=== PATIENT | female | born 1995 | race Two or more races ===

== ENCOUNTER 2024-06-12 14:49 | Emergency (ER) | payer OTHER ==
[~2024-06-12] VITALS: Ht 162.6 cm; Wt 152.0 kg
[2024-06-12 15:12] LABS: Urine Bacteria None Seen /hpf (None Seen)
[2024-06-12 15:33] LABS: Urine Blood 2+ /uL (Negative); Urine Clarity Clear (Clear); Urine Color Yellow (Yellow); Urine Mucus FEW (None Seen); Urine Protein, UAD TRACE (Negative); Urine Specific Gravity 1.028 (1.001-1.035); Urine Urobilinogen Normal (Negative); Urine WBC 6 /hpf (0 - 5); Urine pH 5.5 (5.0-9.0)
[2024-06-12 17:17] LABS: Basophils # (auto) 0.1 10 ^3/uL (0-0.2); Basophils % (auto) 0.5 % (0.0-2.0); Eosinophils # (auto) 0.2 10 ^3/uL (0-0.8); Eosinophils % (auto) 1.7 % (0.0-7.0); Hematocrit 43.5 % (36.0-46.0); Hemoglobin 14.9 g/dL (12.2-16.2); Lymphocytes % (auto) 37.3 % (10.0-50.0); Mean Corpuscular Hemoglobin 29.7 pg (28.0-32.0); Mean Corpuscular Hgb Conc. 34.3 g/dL (32.0-36.0); Mean Corpuscular Volume 86.8 fL (80.0-100.0); Monocytes # (auto) 0.7 10 ^3/uL (0-1.3); Neutrophils # (auto) 5.9 10 ^3/uL (1.6-8.6); Neutrophils % (auto) 54.5 % (37.0-80.0); Nucleated Red Blood Cells % 0.1 %; Platelet Count (auto) 298 10^3/uL (140-450); Red Blood Cells 5.01 10^6/uL (4.0-5.20); Red Cell Distribution Width 14.3 % (11.8-14.3); White Blood Cell 10.9 10^3/uL (4.4-10.8)
[2024-06-12 17:27] LABS: Alanine Aminotransferase 42 U/L (7-40); Albumin 4.8 g/dL (3.2-4.8); Alkaline Phosphatase 89 U/L (46-116); Anion Gap 8 (5-15); Aspartate Aminotransferase 25 U/L (13-40); BUN/Creatinine Ratio 13.8 (10.0-20.0); Bilirubin, Total 0.5 mg/dL (0.2-1.0); Blood Urea Nitrogen 9 mg/dL (9-23); Calcium 9.9 mg/dL (8.7-10.4); Carbon Dioxide 27 mmol/L (20-31); Chloride 104 mmol/L (98-107); Glucose 87 mg/dL (74-106); Magnesium 2.3 mg/dL (1.6-2.6); Potassium 3.7 mmol/L (3.5-5.1); Sodium 139 mmol/L (136-145); Total Protein 7.8 g/dL (5.7-8.2)
[2024-06-12] MEDS: SODIUM CHLORIDE 0.9% 1,000 ML IV ONE (20:31)
[2024-06-12] MEDS: ASPirin 325 MG TAB PO ONE (20:33)
[2024-06-12 20:35] VITALS: BP 151/90; PULSE 81; RESP 16; O2SAT 99
== END 2024-06-12 20:39 | disposition home or self-care (01) ==
LOC: ER 14:49
DX: R07.89 Other chest pain (principal); Z79.899 Other long term (current) drug therapy
CPT/HCPCS: 36415; 71046; 80053; 81001; 83735; 84484; 85025; 93005

== ENCOUNTER 2025-06-05 15:01 | Inpatient (IN) | payer MEDICAID, OTHER ==
[~2025-06-05] VITALS: Ht 162.6 cm; Wt 162.2 kg
[2025-06-05] MEDS: ADENOSINE 6 MG/2 ML INJ IV ONE ×5 (15:20→15:57)
--- NOTE | 2025-06-05 15:30 | ECG ---
[facility] Test Date: 2025-06-05 Test Time: 15:10:12 Pat Name: BÁRBARA MARREROAllipartment: ED Room: 0251T Gender: F Licensing Analyst: jacquie : 1995 Requested By: DALILA MCFARLANE Order Number: [id number] Reading MD: Heriberto Rowe Measurements Intervals [place] Rate: 239 P: 54 [place]: 142 QRS: -17 QRSD: 82 T: 49 QT: 229 QTc: 457 Interpretive Statements Supraventricular tachycardia Borderline left axis deviation Probable anteroseptal infarct, old ST depression, probably rate related Electronically Signed On 06-13-2025 21:35:48 PDT by Heriberto Rowe Please click the below link to view image of tracing.
[2025-06-05 15:40] VITALS: PULSE 104; RESP 12; O2SAT 100
[2025-06-05] MEDS: MORPHINE SULFATE INJ 2 MG/ml SYRG IM ONE (16:00)
--- NOTE | 2025-06-05 16:12 | ED.PDOC ---
HPI Comments Torri Taylor is a 29-year- old female with no relevant past medical history. The patient came ambulatory to the ED with chief complaint of approximate 3 hrs of the start of sub-sternal chest pain, 9/10, pressure-like; associated with palpitation, and heart racing sensation, lightheaded, dizziness, nausea and, feeling clammy. The patient reported the symptoms started while she was at sitting work at her break time. 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 She went home, and rested, but the symptoms did not improved, the chest pain increased and she vomited once, this prompted her visit to the ED. On the ED her heart rate was 239 bpm, EKG reveled: supraventricular tachycardia, borderline left axis, ST depression probably rate related. The patient was medically converted with adenosine to sinus rhythm. Troponins, CBC, BMP and serial EKG were ordered. Chief Complaint: Chest Pain Time Seen by MD: 15:02 Reviewed Notes: Nurses Notes, Medications, Allergies Allergies: Coded Allergies: NO KNOWN ALLERGIES (Unverified , 06/12/24) Information Source: Patient Mode of Arrival: Ambulatory Severity: Severe Timing: Hours Duration: Since onset Location: Chest (L) Radiation: No Radiation Quality: Pressure Onset: At Rest Cardiac Risk Factors: None PE Risk Factors: None History of: None Modifying Factors: Nothing Associated Signs and Symptoms: Palpitations, Diaphoresis, Other (Dizziness) Past Medical History PAST MEDICAL HISTORY: Denies Surgical History: Denies all surgeries KITCHEN OPERATOR History: No Pertinent KITCHEN OPERATOR History (Patient uses subdermal contraceptive implant placed in 2021. Since then she does not see menstrual periods. ) Family History Family History: Reviewed,noncontributory to illness Social History Smoker: Non-Smoker Alcohol: Denies ETOH Use Drugs: Denies Drug Use Constitutional: reports: diaphoresis EENTM: denies: blurred vision, double vision, ear bleeding, ear discharge, ear drainage, ear pain, ear ringing, eye pain, eye redness, hearing loss, mouth pain, mouth swelling, nasal discharge, nose bleeding, nose congestion, nose pain, photophobia, tearing, throat pain, throat swelling, voice changes, others Respiratory: denies: cough, hemoptysis, orthopnea, SOB at rest, shortness of breath, SOB with excertion, stridor, wheezing, others Cardiovascular: reports: chest pain, diaphoresis, irregular heart beat, lightheadedness, palpitations; denies: dizzy spells, Dyspnea on exertion, edema, left arm pain, PND, syncope, others Gastrointestinal: denies: abdomen distended, abdominal pain, blood streaked bowels, constipated, diarrhea, dysphagia, difficulty swallowing, hematemesis, melena, nausea, poor appetite, poor fluid intake, rectal bleeding, rectal pain, vomiting, others Genitourinary: denies: abnormal vagina bleeding, burning, dyspareunia, dysuria, flank pain, frequency, hematuria, incontinence, pain, , vagina discharge, urgency, others Neurological: denies: dizziness, fainting, headache, left sided numbness, left sided weakness, numbness, paresthesia, pre-existing deficit, right sided numbness, right sided weakness, seizure, speech problems, tingling, tremors, weakness, others Musculoskeletal: denies: back pain, gout, joint pain, joint swelling, muscle pain, muscle stiffness, neck pain, others Integumetry: denies: bruises, change in color, change in hair/nails, dryness, laceration, lesions, lumps, rash, wounds, others Allergic/Immunocompromised: denies: Difficulty Healing, Frequent Infections, Hives, Itching, others Hematologic/Lymphatic: denies: anemia, blood clots, easy bleeding, easy bruising, swollen glands, others Endocrine: denies: excessive hunger, excessive sweating, excessive thirst, excessive urination, flushing, intolerance to cold, intolerance to heat, unexplained weight gain, unexplained weight loss, others Psychiatric: denies: anxiety, bipolar disorder, depression, hopeless, panic disorder, schizophrenia, sleepless, suicidal, others Physical Exam General Appearance: Severe Distress HEENT: Normal ENT Inspection, Pharynx Normal, TMs Normal Neck: Full Range of Motion, Non-Tender, Normal, Normal Inspection Respiratory: Chest Non-Tender, Lungs Clear, No Accessory Muscle Use, No Respiratory Distress, Normal Breath Sounds Cardiovascular: Irregular, No Edema, Normal Peripheral Pulses, Tachycardia Breast Exam: Deferred Gastrointestinal: No Organomegaly, Non Tender, No Pulsatile Mass, Normal Bowel Sounds, Soft Genitalia: Deferred Pelvic: Deferred Rectal: Deferred Extremities: No calf tenderness, Normal capillary refill, Normal inspection, Normal range of motion, Non-tender, No pedal edema Neurologic: Alert, energy engineer II-XII nml as Tested, No Motor Deficits, Normal Affect, Normal Mood, No Sensory Deficits Cerebellar Function: Normal Reflexes: Normal Skin: Dry, Normal Color, Warm Lymphatic: No Adenopathy EKG EKG : Pulse Rate (adult): 239 Cardiac Rhythm: PSVT Block: None Hypertrophy: None ST: Old Was a procedure done? Was a procedure done?: Yes Sedation Sedation?: No Cardioversion Vagal maneuver: Were attempted Attempts: x3 Resulted Rhythm: NSR Direct Supervision: Yes Informed consent obtained: Yes Risks/benefits/alt described: Yes CP Differential Dx Differential Diagnosis: PSVT, Ventricular Dysrhythmia Differential Diagnosis: N/A Differential Diagnosis: Angina, Myocardial Infarction X-Ray, Labs, Meds, VS Vital Signs Date Time Temp Pulse Resp B/P (MAP) Pulse Ox O2 Delivery O2 Flow Rate FiO2 06/05/25 16:41 239 06/05/25 15:53 100 06/05/25 15:51 100 Nasal Cannula* 2 28 06/05/25 15:40 104 12 116/79 (91) 100 06/05/25 15:40 104 12 100 Nasal Cannula* 2 28 06/05/25 15:10 239 06/05/25 15:01 97.4 85 18 159/65 100 97.4 Lab Test 06/05/25 15:42 Range/Units White Blood Count 16.1 H 4.4-10.8 10^3/uL Red Blood Count 4.93 4.0-5.20 10^6/uL Hemoglobin 13.6 12.2-16.2 g/dL Hematocrit 41.2 36.0-46.0 % Mean Corpuscular Volume 83.6 80.0-100.0 fL Mean Corpuscular Hemoglobin 27.5 L 28.0-32.0 pg Mean Corpuscular Hemoglobin Concent 32.9 32.0-36.0 g/dL Red Cell Distribution Width 14.4 H 11.8-14.3 % Platelet Count 340 140-450 10^3/uL Mean Platelet Volume 8.4 6.9-10.8 fL Neutrophils (%) (Auto) 70.9 37.0-80.0 % Lymphocytes (%) (Auto) 24.6 10.0-50.0 % Monocytes (%) (Auto) 3.8 0.0-12.0 % Eosinophils (%) (Auto) 0.3 0.0-7.0 % Basophils (%) (Auto) 0.4 0.0-2.0 % Neutrophils # (Auto) 11.4 H 1.6-8.6 10 ^3/uL Lymphocytes # (Auto) 3.9 0.4-5.4 10 ^3/uL Monocytes # (Auto) 0.6 0-1.3 10 ^3/uL Eosinophils # (Auto) 0 0-0.8 10 ^3/uL Basophils # (Auto) 0.1 0-0.2 10 ^3/uL Nucleated Red Blood Cells 0.0 % Sodium Level 139 136-145 mmol/L Potassium Level 4.1 3.5-5.1 mmol/L Chloride Level 105 98-107 mmol/L Carbon Dioxide Level 22 20-31 mmol/L Anion Gap 12 5-15 Blood Urea Nitrogen 12 9-23 mg/dL Creatinine 1.05 H 0.550-1.02 mg/dL Glomerular Filtration Rate Calc 73 >90 mL/min BUN/Creatinine Ratio 11.4 10.0-20.0 Serum Glucose 175 H 74-106 mg/dL Calcium Level 9.4 8.7-10.4 mg/dL Troponin I High Sensitivity 494 *H </=34 ng/L Current Medications Medications (Trade) Dose Ordered Sig/Karel Route Start Time Stop Time Status Last Admin Adenosine (Adenosine) 6 mg ONCE ONCE IV 06/05/25 15:45 06/05/25 15:46 DC 06/05/25 15:20 Adenosine (Adenosine) 12 mg ONCE ONCE IV 06/05/25 15:45 06/05/25 15:46 DC 06/05/25 15:26 Adenosine (Adenosine) 18 mg ONCE ONCE IV 06/05/25 15:45 06/05/25 15:46 DC 06/05/25 15:30 X-Ray, Labs, Meds, VS Comment The patient is re-evaluated, she reports her chest pain has improved 3/10, she feels less dizzy. New EKG showed: Sinus tachycardia. HR: 106bpm Troponins 496, CBC: WBC 16.1 X-Ray: No acute disease Time of 1ST Reevaluation: 16:40 Reevaluation 1ST: Improved Patient Education/Counseling: Diagnosis, Treatment, Prognosis, Need For Follow Up Family Education/Counseling: Diagnosis, Treatment, Prognosis, Need For Follow Up SEPSIS Sepsis Screen Date sepsis recognized/suspect: Jun 05, 2025 Time Sepsis recognized/suspect: 1540 Recent Procedure: No On Antibiotic Therapy: No Respiratory Rate >20: No Heart Rate >90: Yes Temp<36 C (96.8 F) or >38.3 C: No SBP <90 or MAP <65 mmHG: No New Acute Mental Status Change: No Is the patient on CPAP, BIPAP,: No Physician Orders Troponin-I Hs (06/05/25 16:04) Troponin-I Hs (06/05/25 18:04) Electrocardigram (06/05/25 16:04) Electrocardigram (06/05/25 18:04) Troponin-I Hs (06/05/25 15:39) Troponin-I Hs (06/05/25 16:39) Troponin-I Hs (06/05/25 18:39) Electrocardigram (06/05/25 15:39) Chest Xray 1 View (06/05/25 15:46) * Cardiology Consult (06/05/25 16:59) Vital Signs Date Time Temp Pulse Resp B/P (MAP) Pulse Ox O2 Delivery O2 Flow Rate FiO2 06/05/25 16:41 239 06/05/25 15:53 100 06/05/25 15:51 100 Nasal Cannula* 2 28 06/05/25 15:40 104 12 116/79 (91) 100 06/05/25 15:40 104 12 100 Nasal Cannula* 2 28 06/05/25 15:10 239 06/05/25 15:01 97.4 85 18 159/65 100 97.4 Laboratory Tests Test 06/05/25 15:42 White Blood Count 16.1 10^3/uL (4.4-10.8) H Medications Medications Dose Ordered Sig/Karel Route Start Time Stop Time Status Last Admin Dose Admin Adenosine 6 mg ONCE ONCE IV 06/05/25 15:45 06/05/25 15:46 DC 06/05/25 15:20 Adenosine 12 mg ONCE ONCE IV 06/05/25 15:45 06/05/25 15:46 DC 06/05/25 15:26 Adenosine 18 mg ONCE ONCE IV 06/05/25 15:45 06/05/25 15:46 DC 06/05/25 15:30 Departure 1 Departure Time of Disposition: 17:21 Impression: Primary Impression: SVT (supraventricular tachycardia) Additional Impression: Acute coronary syndrome Disposition: 09 ADMITTED INPATIENT Admit to: Tele Condition: Stable Comments Goals of care discussed with the patient > 45 min. Discussed plan of care with Dr. Luong Code status: Full code PCP: does not recall name. Plan discussed with: Patient and her mother, the patient agrees with the a dmission plan. Critical Care Note Critical Care Time?: Yes (45 min-critical care time only) Stability Stability form required: No Heart Score Heart Score: Heart Score Response (Comments) Value History Highly Suspicious [address]-Deviation 2 Age <45 0 Risk Factors 1 or 2 risk factors 1 Troponin >3 x's Normal limit 2 Total 7 DALILA MCFARLANE RESIDENT Jun 05, 2025 16:12
[2025-06-05 16:27] LABS: Hematocrit 41.2 % (36.0-46.0); Hemoglobin 13.6 g/dL (12.2-16.2); Mean Corpuscular Hemoglobin 27.5 pg (28.0-32.0); Mean Corpuscular Volume 83.6 fL (80.0-100.0); Nucleated Red Blood Cells % 0.0 %
--- NOTE | 2025-06-05 16:27 | DVH ---
CHEST RADIOGRAPH Indication: Chest pain Technique: Single frontal view of the chest was obtained COMPARISON: XY CHEST TWO VIEWS ROUTINE on DOS: 06/12/24 FINDINGS: Lines and Tubes: None Lungs: Clear Pleura: No effusion. No pneumothorax. Cardiomediastinal contours: Unremarkable Bones: Unremarkable IMPRESSION: No acute disease.
[2025-06-05 16:37] LABS: Chloride 105 mmol/L (98-107); Potassium 4.1 mmol/L (3.5-5.1); Sodium 139 mmol/L (136-145)
[2025-06-05 16:38] LABS: Anion Gap 12 (5-15); Calcium 9.4 mg/dL (8.7-10.4); Carbon Dioxide 22 mmol/L (20-31)
[2025-06-05 16:43] LABS: BUN/Creatinine Ratio 11.4 (10.0-20.0); Blood Urea Nitrogen 12 mg/dL (9-23); Glucose 175 mg/dL (74-106)
[2025-06-05 18:52] LABS: Urine Protein, UAD Negative (Negative)
[2025-06-05] MEDS ORDERED: TEMAZEPAM 15 MG CAP PO PRN (20:00)
[2025-06-05] MEDS ORDERED: ONDANSETRON HCL 4 MG/2 ML VIAL IV PRN (20:00)
[2025-06-05] MEDS ORDERED: HEPARIN DRIP/D5W 100UNITS/ML 250 ML IV SCH (20:00)
[2025-06-05] MEDS ORDERED: NITROGLYCERIN 0.4 MG SL TAB SL PRN (20:00)
[2025-06-05] MEDS ORDERED: MORPHINE SULFATE INJ 2 MG/ml SYRG IV PRN (20:00)
[2025-06-05] MEDS ORDERED: ACETAMINOPHEN 325 MG TAB PO PRN (20:00)
[2025-06-05 21:07] LABS: Hematocrit 40.3 % (36.0-46.0); Hemoglobin 13.2 g/dL (12.2-16.2); Mean Corpuscular Hemoglobin 27.4 pg (28.0-32.0); Mean Corpuscular Volume 83.3 fL (80.0-100.0); Nucleated Red Blood Cells % 0.0 %
[2025-06-05 21:34] LABS: INR 1.02 (0.9-1.15); Partial Thromboplastin Time 28.5 SEC (24.5-34.5); Prothrombin Time 10.8 sec (9.3-11.8)
[2025-06-05 21:37] VITALS: PULSE 92
[2025-06-05 21:40] VITALS: BP 137/80; PULSE 89; RESP 20; TEMP 98.4; O2SAT 99
--- NOTE | 2025-06-05 23:09 | ECG ---
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
[2025-06-05 23:17] VITALS: PULSE 89; RESP 20; O2SAT 99
[2025-06-05 23:19] VITALS: BP 137/80; PULSE 89; RESP 20; TEMP 98.4; O2SAT 99
[2025-06-05] MEDS: ATORVASTATIN 20 MG TAB PO SCH (23:37)
[2025-06-05] MEDS: HEPARIN SODIUM (PORCINE) 5000 UNITS/ML 1ML VIAL IV ONE (23:40)
[2025-06-05] MEDS: HEPARIN DRIP/D5W 100UNITS/ML 250 ML IV SCH (23:55)
[2025-06-06] VITALS (8 sets, daily range): BP systolic 102–125; BP diastolic 51–74; PULSE 80–95; RESP 18–20; TEMP 97.9–98.2; O2SAT 95–99
--- NOTE | 2025-06-06 04:37 | DVHHP2 ---
History of Present Illness Reason for Visit: Palpitations History of Present Illness 29-year-old female presents for evaluation of palpitations. Patient reports developing palpitations around noon yesterday then subsequently right-sided chest pressure with nausea and diaphoresis which lasted approximately 4 hours until she arrived to the emergency department. Currently she denies any symptoms. Patient was noted to be in SVT EN route and given adenosine x2 which converted her to sinus rhythm. Past Medical History Denies Past Surgical History Denies Family History Noncontributory Smoke: No ALCOHOL: none Drugs: None Lives: with Family Review of Systems Review of Systems Review of systems are currently negative otherwise addressed in HPI. Allergies: Coded Allergies: NO KNOWN ALLERGIES (Unverified , 06/12/24) Medications Current Medications Medications Dose Ordered Sig/Karel Route Start Time Stop Time Status Last Admin Dose Admin Temazepam 15 mg QHSP PRN PO 06/05/25 20:00 Ondansetron HCl 4 mg Q4HP PRN IV 06/05/25 20:00 Acetaminophen 650 mg Q6HP PRN PO 06/05/25 20:00 Nitroglycerin 0.4 mg Q5MINP PRN SL 06/05/25 20:00 Morphine Sulfate 2 mg Q30M PRN IV 06/05/25 20:00 Aspirin 162 mg DAILY PO 06/06/25 10:00 Atorvastatin Calcium 10 mg HS PO 06/05/25 22:00 06/05/25 23:37 10 MG Heparin Sodium/ Dextrose 250 ml @ 10 mls/hr Q24H IV 06/05/25 23:00 06/05/25 23:55 10 MLS/HR Exam Vital Signs Vital Signs Date Time Temp Pulse Resp B/P (MAP) Pulse Ox O2 Delivery O2 Flow Rate FiO2 06/06/25 01:00 98.0 82 20 114/72 (86) 99 98.0 06/05/25 23:17 Nasal Cannula* 2 28 Exam Gen: 29-year-old female in mild distress, morbidly obese Skin: Warm, dry, normal color and texture, no rash. HEENT: Normocephalic atraumatic, mucous membranes moist and pink. Neck: Cervical and supraclavicular nodes normal without enlargement, trachea is midline, thyroid gland is normal without masses. Pulmonary: Clear to auscultation and percussion bilaterally. Cardiac: Regular rate and rhythm. No murmur Abdomen: Soft, nontender, nondistended, bowel sounds present all 4 quadrants, no guarding, no rigidity, no organomegaly. Extremities: No cyanosis, clubbing, no edema Neuro: Cranial nerves II through XII grossly intact, normal affect and speech, no focal motor deficits. Labs/Xrays ORDERING PHYSICIAN: DALILA MCFARLANE RESIDENT PROCEDURE(s): CXR1 - CHEST XRAY 1 VIEW REASON: Chest pain ORDER NUMBER(s): [id number], ACCESSION NUMBER(s): [id number] CHEST RADIOGRAPH Indication: Chest pain Technique: Single frontal view of the chest was obtained COMPARISON: XY CHEST TWO VIEWS ROUTINE on DOS: 06/12/24 FINDINGS: Lines and Tubes: None Lungs: Clear Pleura: No effusion. No pneumothorax. Cardiomediastinal contours: Unremarkable Bones: Unremarkable IMPRESSION: No acute disease. Labs Test 06/05/25 20:32 06/05/25 18:30 06/05/25 15:42 Range/Units White Blood Count 12.7 H 4.4-10.8 10^3/uL Red Blood Count 4.83 4.0-5.20 10^6/uL Hemoglobin 13.2 12.2-16.2 g/dL Hematocrit 40.3 36.0-46.0 % Mean Corpuscular Volume 83.3 80.0-100.0 fL Mean Corpuscular Hemoglobin 27.4 L 28.0-32.0 pg Mean Corpuscular Hemoglobin Concent 32.9 32.0-36.0 g/dL Red Cell Distribution Width 14.6 H 11.8-14.3 % Platelet Count 339 140-450 10^3/uL Mean Platelet Volume 8.5 6.9-10.8 fL Neutrophils (%) (Auto) 70.5 37.0-80.0 % Lymphocytes (%) (Auto) 25.5 10.0-50.0 % Monocytes (%) (Auto) 3.5 0.0-12.0 % Eosinophils (%) (Auto) 0.1 0.0-7.0 % Basophils (%) (Auto) 0.4 0.0-2.0 % Neutrophils # (Auto) 9.0 H 1.6-8.6 10 ^3/uL Lymphocytes # (Auto) 3.2 0.4-5.4 10 ^3/uL Monocytes # (Auto) 0.4 0-1.3 10 ^3/uL Eosinophils # (Auto) 0 0-0.8 10 ^3/uL Basophils # (Auto) 0 0-0.2 10 ^3/uL Nucleated Red Blood Cells 0.0 % Prothrombin Time 10.8 9.3-11.8 sec Prothrombin Time INR 1.02 0.9-1.15 Activated Partial Thromboplast Time 28.5 24.5-34.5 SEC Troponin I High Sensitivity 5241 *H </=34 ng/L Urine Color Light-yellow Yellow Urine Clarity Clear Clear Urine pH 5.5 5.0-9.0 Urine Specific [place] 1.012 1.001-1.035 Urine Protein Negative Negative Urine Ketones Trace Negative Urine Blood Negative Negative /uL Urine Nitrite Negative Negative Urine Bilirubin Negative Negative Urine Urobilinogen Normal Negative mg/dL Urine Leukocyte Esterase Negative Negative /uL Urine RBC <1 0 - 4 /hpf Urine Microscopic WBC < 1 0-5 /HPF Urine Squamous Epithelial Cells Few <5 /hpf Urine Bacteria None seen None Seen /hpf Urine Glucose Normal Normal mg/dL Sodium Level 139 136-145 mmol/L Potassium Level 4.1 3.5-5.1 mmol/L Chloride Level 105 98-107 mmol/L Carbon Dioxide Level 22 20-31 mmol/L Anion Gap 12 5-15 Blood Urea Nitrogen 12 9-23 mg/dL Creatinine 1.05 H 0.550-1.02 mg/dL Glomerular Filtration Rate Calc 73 >90 mL/min BUN/Creatinine Ratio 11.4 10.0-20.0 Serum Glucose 175 H 74-106 mg/dL Calcium Level 9.4 8.7-10.4 mg/dL SEPSIS Sepsis Screen Date sepsis recognized/suspect: Jun 05, 2025 Time Sepsis recognized/suspect: 1540 Recent Procedure: No On Antibiotic Therapy: No Respiratory Rate >20: No Heart Rate >90: Yes Temp<36 C (96.8 F) or >38.3 C: No SBP <90 or MAP <65 mmHG: No New Acute Mental Status Change: No Is the patient on CPAP, BIPAP,: No Physician Orders Platelet Monitoring (06/05/25 22:53) Discontinue All Im Injections (06/05/25 22:53) Heparin Drip/D5w 100units/Ml (06/05/25 23:00) Npo (Nothing By Mouth) Diet (06/06/25 Breakfast) Heparin Per Standardized Proce (06/05/25 23:01) Electrocardigram (06/05/25 23:11) PTPTT (06/06/25 06:00) * Cardiology Consult (06/06/25 03:25) Vital Signs Date Time Temp Pulse Resp B/P (MAP) Pulse Ox O2 Delivery O2 Flow Rate FiO2 06/06/25 01:00 98.0 82 20 114/72 (86) 99 98.0 06/05/25 23:19 98.4 89 20 137/80 (99) 99 98.4 06/05/25 23:17 89 20 99 Nasal Cannula* 2 28 06/05/25 21:40 98.4 89 20 137/80 (99) 99 98.4 06/05/25 21:37 92 06/05/25 21:00 91 12 125/71 (89) 97 Laboratory Tests Test 06/05/25 20:32 White Blood Count 12.7 10^3/uL (4.4-10.8) H Medications Medications Dose Ordered Sig/Karel Route Start Time Stop Time Status Last Admin Dose Admin Aspirin 162 mg ONCE ONCE PO 06/05/25 20:00 06/05/25 20:32 DC 06/05/25 23:38 162 MG Atorvastatin Calcium 10 mg HS PO 06/05/25 22:00 06/05/25 23:37 10 MG Heparin Sodium (Porcine) 4,000 units ONCE ONCE IV 06/05/25 23:00 06/05/25 23:01 DC 06/05/25 23:40 4,000 UNITS Heparin Sodium/ Dextrose 250 ml @ 10 mls/hr Q24H IV 06/05/25 23:00 06/05/25 23:55 10 MLS/HR Assessment/Plan Assessment/Plan Assessment SVT Elevated troponin, rule out NSTEMI Acute kidney injury Morbid obesity Plan Admit the patient to telemetry to the hospitalist Heparin drip Cardiology consult ACS protocol Continue treatment per orders. Plan discussed with: Patient My Orders Orders - ISIAH KHAN Procedure Category Date Status Time Basic Metabolic Panel LAB 06/06/25 Logged 04:00 Admit ADMIT 06/05/25 Transmitted 19:50 Temazepam (Restoril) PHA 06/05/25 In Process 20:00 Ondansetron Hcl PHA 06/05/25 In Process (Zofran) 20:00 Complete Blood Count LAB 06/06/25 Logged 04:00 Echo 2d Mode Cardiac US 06/05/25 Logged DOP 19:50 Condition: Fair GERTRUDE 06/05/25 In Process 19:50 Acetaminophen Tablet PHA 06/05/25 In Process (Tylenol Tablet) 20:00 Bedrest With Bathroom GERTRUDE 06/05/25 In Process Privileg 19:50 Nitroglycerin PHA 06/05/25 In Process Sublingual (Ntrostat 20:00 Morphine Sulfate PHA 06/05/25 In Process Injection 20:00 Stat Ekg For Chest [facility] 06/05/25 In Process Pain 19:50 Notify Of Changes [facility] 06/05/25 In Process From Base 19:50 Corporate Traffic Manager For [facility] 06/05/25 In Process 24 Hours 19:50 Emergency Dysrhythmia [facility] 06/05/25 In Process Protocol 19:50 Rhythm Strips Once [facility] 06/05/25 In Process Every Shift 19:50 Oxygen By Nasal RT 06/05/25 Transmitted Cannula 19:50 Aspirin Tablet PHA 06/06/25 In Process 10:00 Atorvastatin (Lipitor) PHA 06/05/25 In Process 22:00 Platelet Monitoring GERTRUDE 06/05/25 In Process 22:53 Discontinue All Im GERTRUDE 06/05/25 In Process Injections 22:53 Heparin Drip/D5w PHA 06/05/25 In Process 100units/Ml 23:00 Npo (Nothing By DIET 06/06/25 Transmitted Mouth) Diet Breakfast Heparin Per GERTRUDE 06/05/25 In Process Standardized Proce 23:01 Electrocardigram EKG 06/05/25 Logged 23:11 PTPTT LAB 06/06/25 Logged 06:00 Date of Service: Jun 05, 2025 Billing Provider: ISIAH KHAN Common Visit Codes: [id number] INP/OBS CARE (HIGH) ISIAH KHAN Jun 06, 2025 04:37
--- NOTE | 2025-06-06 06:20 | ECG ---
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
--- NOTE | 2025-06-06 06:21 | ECG ---
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
--- NOTE | 2025-06-06 06:24 | ECG ---
[facility] Test Date: 2025-06-05 Test Time: 15:36:23 Pat Name: BÁRBARA MARRERODepartment: Room: 0251T B Gender: F Manager Policy: RACQUEL : 1995 Requested By: ISIAH KHAN Order Number: [id number] Reading MD: Heriberto Rowe Measurements Intervals [place] Rate: 104 P: 66 [place]: 150 QRS: -18 QRSD: 100 T: 83 QT: 333 QTc: 438 Interpretive Statements Sinus tachycardia Probable left ventricular hypertrophy Anterior Q waves, possibly due to LVH Nonspecific T abnormalities, lateral leads Baseline wander in lead(s) I,II,aVR Electronically Signed On 06-13-2025 21:36:43 PDT by Heriberto Rowe Please click the below link to view image of tracing.
[2025-06-06 07:29] LABS: Chloride 104 mmol/L (98-107); Potassium 3.7 mmol/L (3.5-5.1); Sodium 140 mmol/L (136-145)
[2025-06-06 07:30] LABS: Anion Gap 10 (5-15); Carbon Dioxide 26 mmol/L (20-31); Hematocrit 36.1 % (36.0-46.0); Hemoglobin 12.0 g/dL (12.2-16.2); Mean Corpuscular Hemoglobin 27.7 pg (28.0-32.0); Mean Corpuscular Volume 83.4 fL (80.0-100.0); Nucleated Red Blood Cells % 0.0 %
[2025-06-06 07:33] LABS: INR 1.05 (0.9-1.15); Partial Thromboplastin Time 30.8 SEC (24.5-34.5); Prothrombin Time 11.1 sec (9.3-11.8)
[2025-06-06 07:35] LABS: BUN/Creatinine Ratio 15.6 (10.0-20.0); Blood Urea Nitrogen 10 mg/dL (9-23)
[2025-06-06 07:36] LABS: Calcium 8.7 mg/dL (8.7-10.4); Glucose 109 mg/dL (74-106)
[2025-06-06 09:32] LABS: Cholesterol 181.0 mg/dL (< 200); HDL Cholesterol 43.0 mg/dL (40-59)
[2025-06-06 09:38] LABS: Magnesium 2.2 mg/dL (1.6-2.6)
[2025-06-06] MEDS: METOPROLOL SUCCINATE XL 50 MG TAB PO SCH (09:49)
[2025-06-06] MEDS: HEPARIN SODIUM (PORCINE) 5000 UNITS/ML 1ML VIAL IV ONE (09:49)
[2025-06-06] MEDS: HEPARIN DRIP/D5W 100UNITS/ML 250 ML IV SCH (09:50)
[2025-06-06 09:58] LABS: Triglycerides 154.0 mg/dL (< 150)
--- NOTE | 2025-06-06 10:01 | DVHINCON2 ---
Date Seen: Jun 06, 2025 Referring Physician MD Fredi Reason for Consultation New onset SVT History of Present Illness This is a pleasant 29-year-old female who presented to the emergency room with a chief complaint of palpitations with onset yesterday. 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 She drove herself home believing she was experiencing a panic attack. The symptoms continued and then associated with vomiting, dizziness, and lightheadedness for which she called her mother who drove her to the emergency room. Upon arrival to the emergency room she was found to be tachycardic for which she underwent a 12 lead electrocardiogram revealing a supraventricular tachycardia rhythm at 239 bpm. He was successfully chemically cardioverted with adenosine 6 mg followed by 12 mg followed by 18 mg. She has undergone subsequent 12 lead electrocardiograms revealing a normal sinus rhythm. The patient denies any history of tachyarrhythmias. Denies the use of coffee, pre workout, or illicit drugs. Admits to daily morning intake of [employer] energy drinks which contains approximately 200 mg of caffeine. States she drinks about 80 oz of water per day. Denies any past medical history. Past Medical History Past medical history reviewed. No other significant than mentioned above. Past Surgical History Past Surgical history reviewed. No other significant than mentioned above. Family History: Diabetes mellitus G8 FATHER Family History Family history reviewed. Social History Denies the use of illicit drugs, alcohol, or tobacco use. Allergies: Coded Allergies: NO KNOWN ALLERGIES (Unverified , 06/12/24) Home Meds No Active Prescriptions or Reported Meds Home Meds Denies any home medications. Current Medications Current Medications Medications (Trade) Dose Ordered Sig/Karel Route PRN Reason Start Time Stop Time Status Last Admin Temazepam (Restoril) 15 mg QHSP PRN PO FOR INSOMNIA 06/05/25 20:00 Ondansetron HCl (Zofran) 4 mg Q4HP PRN IV NAUSEA / VOMITING 06/05/25 20:00 Acetaminophen (Tylenol Tablet) 650 mg Q6HP PRN PO PAIN SCALE 1-3 OR TEMP>100.4 06/05/25 20:00 Nitroglycerin (Ntrostat Sublingual) 0.4 mg Q5MINP PRN SL FOR CHEST PAIN 06/05/25 20:00 Morphine Sulfate 2 mg Q30M PRN IV FOR CHEST PAIN 06/05/25 20:00 Aspirin 162 mg DAILY PO 06/06/25 10:00 Atorvastatin Calcium (Lipitor) 10 mg HS PO 06/05/25 22:00 06/05/25 23:37 Heparin Sodium/ Dextrose 250 ml @ 10 mls/hr Q24H IV 06/05/25 20:00 06/05/25 21:26 DC Heparin Sodium/ Dextrose 250 ml @ 10 mls/hr Q24H IV 06/05/25 23:00 06/06/25 09:15 DC 06/05/25 23:55 Metoprolol Succinate (Toprol Xl) 25 mg DAILY PO 06/06/25 10:00 Heparin Sodium/ Dextrose 250 ml @ 13 mls/hr [id number] IV 06/06/25 09:15 Review of Systems Constitutional: No symptom reported Ears, Nose, & Throat: No symptom reported Eyes: No symptom reported Neurological: Dizziness, lightheadedness Pulmonary/Respiratory: No symptom reported Cardiovascular: Palpitations Gastrointestinal: Nausea and vomiting Genitourinary: No symptom reported Musculoskeletal: No symptom reported Skin: No symptom reported Psychiatric: No symptom reported Endocrine: No symptom reported Hemotologic/Lymphatic: No symptom reported Vital Signs Vital Signs Date Time Temp Pulse Resp B/P (MAP) Pulse Ox O2 Delivery O2 Flow Rate FiO2 06/06/25 09:00 97.9 80 18 109/74 (86) 99 97.9 06/05/25 23:17 Nasal Cannula* 2 28 Physical Exam General Appearance: Cooperative. Well developed. Morbidly obese. In no acute distress Head Exam: Normal inspection Neck Exam: Normal inspection. Non-tender. Normal alignment Pulmonary/Respiratory: Chest non-tender. Clear bilateral breath sounds Cardiovascular/Chest: Regular rate and rhythm. S1, S2. NSR. No murmurs. No JVD. Peripheral Pulses: 2+ Radial (R). 2+ Radial (L). 2+ Pedal (R). 2+ Pedal (L) Abdominal Exam: Normal bowel sounds. Soft. Nontender. No hepatospenomegaly. No masses Ankle Exam: Negative ankle edema Lower extremities: Negative lower extremity edema Neuro/Mental Status: A&O x4. Coherent Thoughts/Psych: Normal thought pattern. Appropriate mood and affect. Good judgement and insight Appearance: In no acute distress Skin Exam: Normal inspection. Normal color. Warm. Dry Labs/Diagnostic Data Labs Test 06/06/25 06:14 06/05/25 18:30 Range/Units White Blood Count 11.6 H 4.4-10.8 10^3/uL Red Blood Count 4.33 4.0-5.20 10^6/uL Hemoglobin 12.0 L 12.2-16.2 g/dL Hematocrit 36.1 # 36.0-46.0 % Mean Corpuscular Volume 83.4 80.0-100.0 fL Mean Corpuscular Hemoglobin 27.7 L 28.0-32.0 pg Mean Corpuscular Hemoglobin Concent 33.3 32.0-36.0 g/dL Red Cell Distribution Width 14.4 H 11.8-14.3 % Platelet Count 289 140-450 10^3/uL Mean Platelet Volume 8.6 6.9-10.8 fL Neutrophils (%) (Auto) 55.4 37.0-80.0 % Lymphocytes (%) (Auto) 37.3 10.0-50.0 % Monocytes (%) (Auto) 5.7 0.0-12.0 % Eosinophils (%) (Auto) 1.1 0.0-7.0 % Basophils (%) (Auto) 0.5 0.0-2.0 % Neutrophils # (Auto) 6.4 1.6-8.6 10 ^3/uL Lymphocytes # (Auto) 4.3 0.4-5.4 10 ^3/uL Monocytes # (Auto) 0.7 0-1.3 10 ^3/uL Eosinophils # (Auto) 0.1 0-0.8 10 ^3/uL Basophils # (Auto) 0.1 0-0.2 10 ^3/uL Nucleated Red Blood Cells 0.0 % Prothrombin Time 11.1 9.3-11.8 sec Prothrombin Time INR 1.05 0.9-1.15 Activated Partial Thromboplast Time 30.8 24.5-34.5 SEC Sodium Level 140 136-145 mmol/L Potassium Level 3.7 3.5-5.1 mmol/L Chloride Level 104 98-107 mmol/L Carbon Dioxide Level 26 20-31 mmol/L Anion Gap 10 5-15 Blood Urea Nitrogen 10 9-23 mg/dL Creatinine 0.64 # 0.550-1.02 mg/dL Glomerular Filtration Rate Calc 121 >90 mL/min BUN/Creatinine Ratio 15.6 10.0-20.0 Serum Glucose 109 H 74-106 mg/dL Calcium Level 8.7 8.7-10.4 mg/dL Troponin I High Sensitivity 7092 *H </=34 ng/L Cholesterol Level 181 < 200 mg/dL HDL Cholesterol 43 40-59 mg/dL Urine Color Light-yellow Yellow Urine Clarity Clear Clear Urine pH 5.5 5.0-9.0 Urine Specific [place] 1.012 1.001-1.035 Urine Protein Negative Negative Urine Ketones Trace Negative Urine Blood Negative Negative /uL Urine Nitrite Negative Negative Urine Bilirubin Negative Negative Urine Urobilinogen Normal Negative mg/dL Urine Leukocyte Esterase Negative Negative /uL Urine RBC <1 0 - 4 /hpf Urine Microscopic WBC < 1 0-5 /HPF Urine Squamous Epithelial Cells Few <5 /hpf Urine Bacteria None seen None Seen /hpf Urine Glucose Normal Normal mg/dL Assessment Supraventricular tachycardia status post chemical cardioversion, now NSR NSTEMI, likely type 2 secondary to above Rule out structural heart disease Acute kidney injury Morbid obesity Plan/Recommendation (Dr. Prescott) The patient with supraventricular tachycardia status post chemical cardioversion with adenosine has sustained a normal sinus rhythm. Likely NSTEMI type 2 secondary to tachyarrhythmia. Continue trending troponin levels as well as heparin drip per pharmacy protocol. Obtain a transthoracic echocardiogram to rule out structural heart disease. Initiate beta-kenrick and IVF given suspected dehydration. Replete electrolytes as necessary, K>4 and Mg>2. Obtain UDS, magnesium, and TSH levels. Strongly counseled on energy drinks cessation. Denies any cardiac symptoms. Rest of plan per clinical course. Thank you for allowing us to participate in this patient's care. Please call if you have any questions or concerns. Critical care time: 45 min. This medical document was created using an electronic medical record system with voice recognition software and computerized dictation system. Although this document has been carefully revie wed, there might still be some phonetic and typographical errors. Occasional wrong-word or ``sound-alike substitutions may have occurred due to the inherent limitations of voice recognition software. These areas are purely typographical due to imperfections of the software programs and do not reflect any compromise in the patient's medical care. Please read the chart carefully and recognize, using context, where these substitutions have occurred. Plan discussed with: Patient, Other NYHA Physical activity limitations: NA Date of Service: Jun 06, 2025 Billing Provider: NAVARRO LANGSTON Cardiology Common Codes: [id number] CARE 30-74 MIN NAVARRO LANGSTON Jun 06, 2025 10:01
--- NOTE | 2025-06-06 10:09 | CONS ---
Pharmacy Clinical Information: HEPARIN PER [facility] PROTOCOL: APTT result of 30.8 received from draw on 06/06 @1614. Bolus of 5000 units + increase rate 300 units per hour. New rate is 1300 units per hour (13ml/hr). Ordered read back and confirmed with RUDDY Love @0837. Next APTT scheduled for 1600. FADIA HERBERT PHARMACIST Jun 06, 2025 10:09
[2025-06-06] MEDS: POTASSIUM EFFERVESENT TAB 25 MEQ PO ONE (11:04)
[2025-06-06] MEDS: SODIUM CHLORIDE 0.9% 1,000 ML IV SCH (11:15)
[2025-06-06 11:51] LABS: Amphetamine Screen, Urine Neg (NEGATIVE); Barbiturate Scree,Urine Neg (NEGATIVE); Benzodiazephine Screen, Urine Neg (NEGATIVE); Cannabinoid Screen, Urine Neg (NEGATIVE); Cocaine Screen, Urine Neg (NEGATIVE); Opiate Scree,Urine Neg (NEGATIVE); Phencyclidine Screen, Urine Neg (NEGATIVE)
[2025-06-06] MEDS ORDERED: ENOXAPARIN SOD 100 MG/1 ML SYRINGE SC ONE (14:00)
[2025-06-06] MEDS: ENOXAPARIN SOD 150 MG/1 ML SYRINGE SC ONE (16:13)
--- NOTE | 2025-06-06 17:27 | DVHPN2 ---
Subjective Patient is feeling of palpitations is improving,. Patient is seen at bedside today. Reviewed: H&P Changes from previous H/P or p: No Changes General: Per HPI Objective Vitals Vital Signs Date Time Temp Pulse Resp B/P (MAP) Pulse Ox O2 Delivery O2 Flow Rate FiO2 06/06/25 17:00 98.1 83 18 114/66 (82) 97 98.1 06/06/25 08:00 Room Air* 0 21 21 Intake/Output Intake and Output 06/06/25 07:00 Intake Total 0 ml Balance 0 ml Intake Oral 0 ml # Voids 1 Exam GEN: Healthy appearing, well-developed, NAD. HEENT: NC/AT; MMM. CV: RRR, no m/r/g. Distant heart sounds, LUNGS: CTAB, no w/r/c. Distant breath sounds, ABD: Soft, NT/ND, NBS, no masses or organomegaly. EXT: skin Warm, well perfused. no rashes. No clubbing, cyanosis, or edema. NEURO: Ambulating with no limitations. No focal deficits. Medications Current Medications Medications Dose Ordered Sig/Karel Route Start Time Stop Time Status Last Admin Dose Admin Temazepam 15 mg QHSP PRN PO 06/05/25 20:00 Ondansetron HCl 4 mg Q4HP PRN IV 06/05/25 20:00 Acetaminophen 650 mg Q6HP PRN PO 06/05/25 20:00 Nitroglycerin 0.4 mg Q5MINP PRN SL 06/05/25 20:00 Morphine Sulfate 2 mg Q30M PRN IV 06/05/25 20:00 Aspirin 162 mg DAILY PO 06/06/25 10:00 06/06/25 09:48 162 MG Atorvastatin Calcium 10 mg HS PO 06/05/25 22:00 06/05/25 23:37 10 MG Metoprolol Succinate 25 mg DAILY PO 06/06/25 10:00 06/06/25 09:49 25 MG Sodium Chloride 1,000 ml @ 100 mls/hr Q10H IV 06/06/25 10:00 06/06/25 11:15 100 MLS/HR Laboratory Results Laboratory Tests 06/06/25 06:14 Chemistry Test 06/06/25 06:14 Calcium Level 8.7 mg/dL (8.7-10.4) Magnesium Level 2.2 mg/dL (1.6-2.6) Coagulation Test 06/05/25 20:32 06/06/25 06:14 Prothrombin Time 10.8 sec (9.3-11.8) 11.1 sec (9.3-11.8) Prothrombin Time INR 1.02 (0.9-1.15) 1.05 (0.9-1.15) Activated Partial Thromboplast Time 28.5 SEC (24.5-34.5) 30.8 SEC (24.5-34.5) Lipid panel Test 06/06/25 06:14 Cholesterol Level 181 mg/dL (< 200) HDL Cholesterol 43 mg/dL (40-59) Triglycerides Level 154 mg/dL (< 150) H Cardiac Markers Test 06/06/25 06:14 B-Type Natriuretic Peptide 212.85 pg/mL (0-100) HgA1c, TSH Test 06/06/25 06:14 Hemoglobin A1c 6.2 % A1C (<5.7) H Thyroid Stimulating Hormone (TSH) 1.15 uIU/mL (0.55-4.78) Urinalysis Test 06/05/25 18:30 Urine Color Light-yellow (Yellow) Urine Clarity Clear (Clear) Urine pH 5.5 (5.0-9.0) Urine Specific [place] 1.012 (1.001-1.035) Urine Protein Negative (Negative) Urine Ketones Trace (Negative) Urine Blood Negative /uL (Negative) Urine Nitrite Negative (Negative) Urine Bilirubin Negative (Negative) Urine Urobilinogen Normal mg/dL (Negative) Urine Leukocyte Esterase Negative /uL (Negative) Urine RBC <1 /hpf (0 - 4) Urine Microscopic WBC < 1 /HPF (0-5) Urine Squamous Epithelial Cells Few /hpf (<5) Urine Bacteria None seen /hpf (None Seen) Urine Glucose Normal mg/dL (Normal) Labs and/or images reviewed: Labs reviewed by me, Image(s) reviewed by me Assessment/Plan Assessment/Plan 29-year-old female presents for evaluation of palpitations. Patient reports developing palpitations around noon yesterday then subsequently right-sided chest pressure with nausea and diaphoresis which lasted approximately 4 hours until she arrived to the emergency department. Currently she denies any symptoms. Patient was noted to be in SVT EN route and given adenosine x2 which converted her to sinus rhythm. 06/06: Patient report is continues to rise in 1999, stable thereafter, cardiology following, concern for type 1 NSTEMI, patient initially brought in for SVT and was given adenosine x2 on route. Currently on metoprolol, cardiology following, echo read pending. Patient is morbidly obese, Diagnosis: SVT Elevated troponin,NSTEMI, rule out type 1 Acute kidney injury Morbid obesity, BMI 61.2 Plan: Aspirin 162 Lipitor 10 Metoprolol XL 25 mg p.o. Normal saline IV fluids Prn analgesia Tele Full code Plan discussed with: Patient Date of Service: Jun 06, 2025 Billing Provider: MEGAN BELTRAN MD Common Visit Codes: [id number] INP/OBS CARE(HIGH) MEGAN BELTRAN MD Jun 06, 2025 17:27
--- NOTE | 2025-06-06 23:29 | DVHINCON2 ---
Date Seen: Jun 06, 2025 Referring Physician MD Fredi Reason for Consultation New onset SVT History of Present Illness This is a 29-year-old female without any significant medical history who presented to the emergency room with a complaint of heart palpitations with onset yesterday. 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 She drove herself home believing she was experiencing a panic attack. The symptoms continued and then associated with vomiting, dizziness, and lightheadedness for which she called her mother who drove her to the emergency room. Upon arrival to the emergency room she was found to be tachycardic for which she underwent a 12 lead electrocardiogram reve aling a supraventricular tachycardia rhythm at 239 bpm. She was successfully chemically cardioverted with adenosine 6 mg followed by 12 mg followed by 18 mg. She has undergone subsequent 12 lead electrocardiograms revealing a normal sinus rhythm. The patient denies any history of tachyarrhythmias. Denies the use of coffee, pre workout, or illicit drugs. Admits to daily morning intake of [employer] energy drinks which contains approximately 200 mg of caffeine.States she drinks about 80 oz of water per day. Troponin 7024 > 4889. Chest x-ray shows NAD. Patient was admitted to the hospital. I am asked to consult on this patient. Past Medical History Past medical history reviewed. No other significant than mentioned above. Past Surgical History Past Surgical history reviewed. No other significant than mentioned above. Family History: Diabetes mellitus G8 FATHER Allergies: Coded Allergies: NO KNOWN ALLERGIES (Unverified , 06/12/24) Home Meds No Active Prescriptions or Reported Meds Current Medications Current Medications Medications (Trade) Dose Ordered Sig/Karel Route PRN Reason Start Time Stop Time Status Last Admin Temazepam (Restoril) 15 mg QHSP PRN PO FOR INSOMNIA 06/05/25 20:00 Ondansetron HCl (Zofran) 4 mg Q4HP PRN IV NAUSEA / VOMITING 06/05/25 20:00 Acetaminophen (Tylenol Tablet) 650 mg Q6HP PRN PO PAIN SCALE 1-3 OR TEMP>100.4 06/05/25 20:00 Nitroglycerin (Ntrostat Sublingual) 0.4 mg Q5MINP PRN SL FOR CHEST PAIN 06/05/25 20:00 Morphine Sulfate 2 mg Q30M PRN IV FOR CHEST PAIN 06/05/25 20:00 Aspirin 162 mg DAILY PO 06/06/25 10:00 06/06/25 09:48 Atorvastatin Calcium (Lipitor) 10 mg HS PO 06/05/25 22:00 06/05/25 23:37 Heparin Sodium/ Dextrose 250 ml @ 10 mls/hr Q24H IV 06/05/25 20:00 06/05/25 21:26 DC Heparin Sodium/ Dextrose 250 ml @ 10 mls/hr Q24H IV 06/05/25 23:00 06/06/25 09:15 DC 06/05/25 23:55 Metoprolol Succinate (Toprol Xl) 25 mg DAILY PO 06/06/25 10:00 06/06/25 09:49 Heparin Sodium/ Dextrose 250 ml @ 13 mls/hr [id number] IV 06/06/25 09:15 06/06/25 09:50 Sodium Chloride 1,000 ml @ 100 mls/hr Q10H IV 06/06/25 10:00 06/06/25 11:15 Review of Systems Constitutional: No symptom reported Ears, Nose, & Throat: No symptom reported Eyes: No symptom reported Neurological: Dizziness, lightheadedness Pulmonary/Respiratory: No symptom reported Cardiovascular: Palpitations Gastrointestinal: Nausea and vomiting Genitourinary: No symptom reported Musculoskeletal: No symptom reported Skin: No symptom reported Psychiatric: No symptom reported Endocrine: No symptom reported Hemotologic/Lymphatic: No symptom reported Vital Signs Vital Signs Date Time Temp Pulse Resp B/P (MAP) Pulse Ox O2 Delivery O2 Flow Rate FiO2 06/06/25 13:00 98.1 84 18 102/67 (79) 95 98.1 06/05/25 23:17 Nasal Cannula* 2 28 Physical Exam GENERAL: Alert and oriented x 3. No acute distress. Morbidly obesity. EYES: PERRL, EOMI. Anicteric. HENT: Moist mucous membranes. LUNGS: Clear to auscultation bilaterally. CARDIOVASCULAR: Regular rate and rhythm. ABDOMEN: Soft, nontender and nondistended. EXTREMITIES: No edema. NEUROLOGIC: No focal neurological deficits. SKIN: Warm, dry. Labs/Diagnostic Data Labs Test 06/06/25 12:39 06/06/25 10:48 06/06/25 06:14 06/05/25 18:30 Range/Units Troponin I High Sensitivity 4889 *H </=34 ng/L White Blood Count 11.6 H 4.4-10.8 10^3/uL Red Blood Count 4.33 4.0-5.20 10^6/uL Hemoglobin 12.0 L 12.2-16.2 g/dL Hematocrit 36.1 # 36.0-46.0 % Mean Corpuscular Volume 83.4 80.0-100.0 fL Mean Corpuscular Hemoglobin 27.7 L 28.0-32.0 pg Mean Corpuscular Hemoglobin Concent 33.3 32.0-36.0 g/dL Red Cell Distribution Width 14.4 H 11.8-14.3 % Platelet Count 289 140-450 10^3/uL Mean Platelet Volume 8.6 6.9-10.8 fL Neutrophils (%) (Auto) 55.4 37.0-80.0 % Lymphocytes (%) (Auto) 37.3 10.0-50.0 % Monocytes (%) (Auto) 5.7 0.0-12.0 % Eosinophils (%) (Auto) 1.1 0.0-7.0 % Basophils (%) (Auto) 0.5 0.0-2.0 % Neutrophils # (Auto) 6.4 1.6-8.6 10 ^3/uL Lymphocytes # (Auto) 4.3 0.4-5.4 10 ^3/uL Monocytes # (Auto) 0.7 0-1.3 10 ^3/uL Eosinophils # (Auto) 0.1 0-0.8 10 ^3/uL Basophils # (Auto) 0.1 0-0.2 10 ^3/uL Nucleated Red Blood Cells 0.0 % Prothrombin Time 11.1 9.3-11.8 sec Prothrombin Time INR 1.05 0.9-1.15 Activated Partial Thromboplast Time 30.8 24.5-34.5 SEC Sodium Level 140 136-145 mmol/L Potassium Level 3.7 3.5-5.1 mmol/L Chloride Level 104 98-107 mmol/L Carbon Dioxide Level 26 20-31 mmol/L Anion Gap 10 5-15 Blood Urea Nitrogen 10 9-23 mg/dL Creatinine 0.64 # 0.550-1.02 mg/dL Glomerular Filtration Rate Calc 121 >90 mL/min BUN/Creatinine Ratio 15.6 10.0-20.0 Serum Glucose 109 H 74-106 mg/dL Hemoglobin A1c 6.2 H <5.7 % A1C Calcium Level 8.7 8.7-10.4 mg/dL Magnesium Level 2.2 1.6-2.6 mg/dL B-Type Natriuretic Peptide 212.85 0-100 pg/mL Triglycerides Level 154 H < 150 mg/dL Cholesterol Level 181 < 200 mg/dL LDL Cholesterol 132 H < 100 mg/dL HDL Cholesterol 43 40-59 mg/dL Thyroid Stimulating Hormone (TSH) 1.15 0.55-4.78 uIU/mL Urine Color Light-yellow Yellow Urine Clarity Clear Clear Urine pH 5.5 5.0-9.0 Urine Specific [place] 1.012 1.001-1.035 Urine Protein Negative Negative Urine Ketones Trace Negative Urine Blood Negative Negative /uL Urine Nitrite Negative Negative Urine Bilirubin Negative Negative Urine Urobilinogen Normal Negative mg/dL Urine Leukocyte Esterase Negative Negative /uL Urine RBC <1 0 - 4 /hpf Urine Microscopic WBC < 1 0-5 /HPF Urine Squamous Epithelial Cells Few <5 /hpf Urine Bacteria None seen None Seen /hpf Urine Glucose Normal Normal mg/dL Assessment Supraventricular tachycardia status post chemical cardioversion, now NSR. NSTEMI, likely type 2 secondary to above. Rule out structural heart disease. Acute kidney injury. Morbid obesity. Plan/Recommendation I agree with your ongoing assessment and care of plan. Patient has been seen by Martha Brown NP on my behalf, her and I discussed the plan with the patient. The patient with supraventricular tachycardia status post chemical cardioversion with adenosine has sustained a normal sinus rhythm. Likely NSTEMI type 2 secondary to tachyarrhythmia. Continue trending troponin levels as well as heparin drip per pharmacy protocol. Obtain a transthoracic echocardiogram to rule out structural heart disease. Initiate beta-kenrick and IVF given suspected dehydration. Replete electrolytes as necessary, K>4 and Mg>2. Obtain UDS, magnesium, and TSH levels. Strongly counseled on energy drinks cessation. Denies any cardiac symptoms. Rest of plan per clinical course. Additional plan as per the hospital course. Plan discussed with: Patient NYHA Physical activity limitations: NA Date of Service: Jun 06, 2025 Billing Provider: JT KRAMER MD Cardiology Common Codes: [id number] HOSPITAL CARE Cardiology Consultation Codes: [id number] CONSULT <60MIN JT KRAMER MD Jun 06, 2025 13:44
[2025-06-07 01:00] VITALS: BP 112/78; PULSE 80; RESP 18; TEMP 98.3; O2SAT 94
[2025-06-07 05:00] VITALS: BP 130/79; PULSE 79; RESP 18; TEMP 97.5; O2SAT 97
[2025-06-07 06:36] LABS: Hematocrit 37.6 % (36.0-46.0); Hemoglobin 12.4 g/dL (12.2-16.2); Mean Corpuscular Hemoglobin 27.6 pg (28.0-32.0); Mean Corpuscular Volume 83.2 fL (80.0-100.0); Nucleated Red Blood Cells % 0.1 %
[2025-06-07 06:42] LABS: Chloride 106 mmol/L (98-107); Potassium 4.1 mmol/L (3.5-5.1); Sodium 139 mmol/L (136-145)
[2025-06-07 06:43] LABS: Anion Gap 8 (5-15); Carbon Dioxide 25 mmol/L (20-31)
[2025-06-07 06:44] LABS: Calcium 8.7 mg/dL (8.7-10.4)
[2025-06-07 06:48] LABS: Glucose 94 mg/dL (74-106)
[2025-06-07 06:49] LABS: BUN/Creatinine Ratio 16.9 (10.0-20.0); Blood Urea Nitrogen 11 mg/dL (9-23); Magnesium 2.2 mg/dL (1.6-2.6)
[2025-06-07 08:00] VITALS: PULSE 70; PULSE 94; RESP 20; O2SAT 95
[2025-06-07 08:44] VITALS: BP 128/76; PULSE 70; RESP 18; TEMP 97.6; O2SAT 95
--- NOTE | 2025-06-07 12:38 | DVHPN2 ---
Reviewed: H&P General: Per HPI Objective Vitals Vital Signs Date Time Temp Pulse Resp B/P (MAP) Pulse Ox O2 Delivery O2 Flow Rate FiO2 06/07/25 09:31 70 128/76 06/07/25 08:44 97.6 18 95 97.6 06/07/25 08:00 Room Air* 0 21 21 Intake/Output Intake and Output 06/07/25 07:00 Intake Total 1972 ml Balance 1972 ml Intake Oral 1220 ml IV Total 752 ml # Voids 5 Medications Current Medications Medications Dose Ordered Sig/Karel Route Start Time Stop Time Status Last Admin Dose Admin Temazepam 15 mg QHSP PRN PO 06/05/25 20:00 Ondansetron HCl 4 mg Q4HP PRN IV 06/05/25 20:00 Acetaminophen 650 mg Q6HP PRN PO 06/05/25 20:00 Nitroglycerin 0.4 mg Q5MINP PRN SL 06/05/25 20:00 Morphine Sulfate 2 mg Q30M PRN IV 06/05/25 20:00 Aspirin 162 mg DAILY PO 06/06/25 10:00 06/07/25 09:31 162 MG Atorvastatin Calcium 10 mg HS PO 06/05/25 22:00 06/06/25 21:24 10 MG Metoprolol Succinate 25 mg DAILY PO 06/06/25 10:00 06/07/25 09:31 25 MG Sodium Chloride 1,000 ml @ 100 mls/hr Q10H IV 06/06/25 10:00 06/07/25 07:52 100 MLS/HR Laboratory Results Laboratory Tests 06/07/25 06:14 Chemistry Test 06/07/25 06:14 Calcium Level 8.7 mg/dL (8.7-10.4) Magnesium Level 2.2 mg/dL (1.6-2.6) Urinalysis Test 06/05/25 18:30 Urine Color Light-yellow (Yellow) Urine Clarity Clear (Clear) Urine pH 5.5 (5.0-9.0) Urine Specific [place] 1.012 (1.001-1.035) Urine Protein Negative (Negative) Urine Ketones Trace (Negative) Urine Blood Negative /uL (Negative) Urine Nitrite Negative (Negative) Urine Bilirubin Negative (Negative) Urine Urobilinogen Normal mg/dL (Negative) Urine Leukocyte Esterase Negative /uL (Negative) Urine RBC <1 /hpf (0 - 4) Urine Microscopic WBC < 1 /HPF (0-5) Urine Squamous Epithelial Cells Few /hpf (<5) Urine Bacteria None seen /hpf (None Seen) Urine Glucose Normal mg/dL (Normal) SPENCER KIM MD Jun 07, 2025 12:38
[2025-06-07 13:00] VITALS: BP 136/82; PULSE 61; RESP 18; TEMP 97.9; O2SAT 98
[2025-06-07] MEDS ORDERED: METO-6 PO (14:11)
--- NOTE | 2025-06-07 14:12 | DVHDS2 ---
Discharge Summary Date of Admission Jun 05, 2025 at 19:50 Date of Discharge: Jun 07, 2025 Admitting Diagnosis SVT Elevated troponin,NSTEMI, rule out type 1 Acute kidney injury Morbid obesity, BMI 61.2 Labs/Diagnostic Data: Laboratory Results Test 06/07/25 06:14 06/06/25 18:30 06/06/25 06:14 06/05/25 18:30 White Blood Count 9.1 10^3/uL (4.4-10.8) Red Blood Count 4.51 10^6/uL (4.0-5.20) Hemoglobin 12.4 g/dL (12.2-16.2) Hematocrit 37.6 % (36.0-46.0) Mean Corpuscular Volume 83.2 fL (80.0-100.0) Mean Corpuscular Hemoglobin 27.6 pg (28.0-32.0) Mean Corpuscular Hemoglobin Concent 33.1 g/dL (32.0-36.0) Red Cell Distribution Width 14.1 % (11.8-14.3) Platelet Count 300 10^3/uL (140-450) Mean Platelet Volume 8.3 fL (6.9-10.8) Neutrophils (%) (Auto) 44.9 % (37.0-80.0) Lymphocytes (%) (Auto) 46.3 % (10.0-50.0) Monocytes (%) (Auto) 6.2 % (0.0-12.0) Eosinophils (%) (Auto) 2.0 % (0.0-7.0) Basophils (%) (Auto) 0.6 % (0.0-2.0) Neutrophils # (Auto) 4.1 10 ^3/uL (1.6-8.6) Lymphocytes # (Auto) 4.2 10 ^3/uL (0.4-5.4) Monocytes # (Auto) 0.6 10 ^3/uL (0-1.3) Eosinophils # (Auto) 0.2 10 ^3/uL (0-0.8) Basophils # (Auto) 0.1 10 ^3/uL (0-0.2) Nucleated Red Blood Cells 0.1 % Sodium Level 139 mmol/L (136-145) Potassium Level 4.1 mmol/L (3.5-5.1) Chloride Level 106 mmol/L (98-107) Carbon Dioxide Level 25 mmol/L (20-31) Anion Gap 8 (5-15) Blood Urea Nitrogen 11 mg/dL (9-23) Creatinine 0.65 mg/dL (0.550-1.02) Glomerular Filtration Rate Calc 121 mL/min (>90) BUN/Creatinine Ratio 16.9 (10.0-20.0) Serum Glucose 94 mg/dL (74-106) Calcium Level 8.7 mg/dL (8.7-10.4) Magnesium Level 2.2 mg/dL (1.6-2.6) Troponin I High Sensitivity 3692 ng/L (</=34) Urine Opiates Screen Neg (NEGATIVE) Urine Fentanyl Screen Neg (NEGATIVE) Urine Barbiturates Screen Neg (NEGATIVE) Urine Phencyclidine Screen Neg (NEGATIVE) Urine Amphetamines Screen Neg (NEGATIVE) Urine Benzodiazepines Screen Neg (NEGATIVE) Urine Cocaine Screen Neg (NEGATIVE) Urine Cannabinoids Screen Neg (NEGATIVE) Prothrombin Time 11.1 sec (9.3-11.8) Prothrombin Time INR 1.05 (0.9-1.15) Activated Partial Thromboplast Time 30.8 SEC (24.5-34.5) Hemoglobin A1c 6.2 % A1C (<5.7) B-Type Natriuretic Peptide 212.85 pg/mL (0-100) Triglycerides Level 154 mg/dL (< 150) Cholesterol Level 181 mg/dL (< 200) LDL Cholesterol 132 mg/dL (< 100) HDL Cholesterol 43 mg/dL (40-59) Thyroid Stimulating Hormone (TSH) 1.15 uIU/mL (0.55-4.78) Urine Color Light-yellow (Yellow) Urine Clarity Clear (Clear) Urine pH 5.5 (5.0-9.0) Urine Specific [place] 1.012 (1.001-1.035) Urine Protein Negative (Negative) Urine Ketones Trace (Negative) Urine Blood Negative /uL (Negative) Urine Nitrite Negative (Negative) Urine Bilirubin Negative (Negative) Urine Urobilinogen Normal mg/dL (Negative) Urine Leukocyte Esterase Negative /uL (Negative) Urine RBC <1 /hpf (0 - 4) Urine Microscopic WBC < 1 /HPF (0-5) Urine Squamous Epithelial Cells Few /hpf (<5) Urine Bacteria None seen /hpf (None Seen) Urine Glucose Normal mg/dL (Normal) Other Laboratory Tests 06/07/25 06:14 Brief Hx & Hospital Course: This is a 29 years old female with no known past medical history come into emergency department because of heart palpitation and right-sided chest pressure with nausea and diaphoresis. The patient said the pain at approximately 4:00 a.m. until she arrived to emergency department. The patient noted to have SVT when EMS brought her to the hospital. The patient was given two dose of adenosine and converted to sinus rhythm. The patient was seen by instrumentation controls engineer. 2D echo done showed normal echo with EF of 65% with normal valve and normal chamber. The patient was started on metoprolol, statin and aspirin here in the hospital. The patient rhythm remained normal sinus rhythm. Waterproofer Helper's recommend: Continue beta-kenrick. Replete electrolytes as necessary, K>4 and Mg>2. Strongly counseled on energy drinks cessation. Denies any cardiac symptoms. Per instrumentation controls engineer,there is no further cardiac work-up indicated at this time. The patient will be discharged home today. Follow up with primary care physician 1-2 weeks. Activity as tolerated. Diet per home diet. Follow up with instrumentation controls engineer per schedule. Physical exam: HEENT: Normocephalic atraumatic pupils equal react to light and accommodation. Extraocular muscles intact, conjunctiva pink, oropharynx moist, no thrush, no exudate. Lymphatic: No lymphadenopathy Cardiovascular exam: S1, S2 was heard. No murmurs, rubs, gallops Lung: Clear on auscultation bilaterally, no wheeze, rale, rhonchi. GI: Abdominal soft, nondistended, nontenderness, positive bowel sounds. Extremity: No crepitus, cyanosis, edema. Pedal pulses present bilateral. Full range of motion. Skin: Normal turgor, no rash. Psych: Alert, oriented x3. Neurology: No focal deficits, cranial nerve II to XII grossly intact. Upcoming Condition at Discharge: Stable Final Diagnosis/Problems List SVT Elevated troponin,NSTEMI, rule out type 1 Acute kidney injury Morbid obesity, BMI 61.2 Discharge Disposition: Home Discharge Instruct/Medications Diet: Regular Activity: No Restrictions, As Tolerated Follow Up/Referral: PCP 1-2 WEEKS CARDIOLOGY PER SCHEDULE Scheduled Metoprolol Succinate (Toprol Xl), 25 MG PO DAILY Discharge Statement: "Patient was advised to return to the ER or call 911 if any headaches, dizziness, shortness of breath, chest pain, abdominal pain, bleeding, fevers, or worsening of medical condition. Patient was counseled about treatment plan, medications, possible side effects, patientverbalized understanding. All questions were answered to the best of my ability. This discharge took greater then 30 minutes in planning, reviewing documentation, counseling the patient, and discussing with other team members." ASSESSMENT ASSESSMENT Assessment svt Date of Service: Jun 07, 2025 Billing Provider: SPENCER KIM MD Common Visit Codes: 94003-XDR/OBS DISCH DAY >30min SPENCER KIM MD Jun 07, 2025 14:12
--- NOTE | 2025-06-07 14:23 | DVHPN2 ---
Consult Progress Note Date Seen: Jun 07, 2025 Subjective Review of Systems: CVS:Normal, RESPIRATORY:Normal, NEURO:Normal Objective vital signs Vital Sign Date Time Temp Pulse Resp B/P (MAP) Pulse Ox O2 Delivery O2 Flow Rate FiO2 06/07/25 13:00 97.9 61 18 136/82 (100) 98 97.9 06/07/25 08:00 Room Air* 0 21 21 Total Intake and Output 06/06/25 06/06/25 06/07/25 15:00 23:00 07:00 Intake Total 52 ml 1620 ml 300 ml Balance 52 ml 1620 ml 300 ml medications Current Medications Medications Dose Ordered Sig/Karel Route Start Time Stop Time Status Last Admin Dose Admin Temazepam 15 mg QHSP PRN PO 06/05/25 20:00 Ondansetron HCl 4 mg Q4HP PRN IV 06/05/25 20:00 Acetaminophen 650 mg Q6HP PRN PO 06/05/25 20:00 Nitroglycerin 0.4 mg Q5MINP PRN SL 06/05/25 20:00 Morphine Sulfate 2 mg Q30M PRN IV 06/05/25 20:00 Aspirin 162 mg DAILY PO 06/06/25 10:00 06/07/25 09:31 162 MG Atorvastatin Calcium 10 mg HS PO 06/05/25 22:00 06/06/25 21:24 10 MG Metoprolol Succinate 25 mg DAILY PO 06/06/25 10:00 06/07/25 09:31 25 MG Sodium Chloride 1,000 ml @ 100 mls/hr Q10H IV 06/06/25 10:00 06/07/25 07:52 100 MLS/HR Examination: LUNGS:Normal, CVS:Normal, NEURO:Normal laboratory and microbiology Laboratory Tests 06/07/25 06:14 Test 06/07/25 06:14 Range/Units Serum Glucose 94 74-106 mg/dL Problem List/Assessment/Plan Problem List/Assessment/Plan Supraventricular tachycardia status post chemical cardioversion, now NSR NSTEMI, likely type 2 secondary to above Rule out structural heart disease Acute kidney injury Morbid obesity Plan/Recommendation (Dr. Prescott) The patient with supraventricular tachycardia status post chemical cardioversion with adenosine has sustained a normal sinus rhythm. Likely NSTEMI type 2 secondary to tachyarrhythmia. Preliminary transthoracic echocardiogram revealed optimal LV function. Continue beta-kenrick. Replete electrolytes as necessary, K>4 and Mg>2. Strongly counseled on energy drinks cessation. Denies any cardiac symptoms. There is no further cardiac work-up indicated at this time. Kindly call if in need to re-consult. Thank you for allowing us to participate in this patient's care. This medical document was created using an electronic medical record system with voice recognition software and computerized dictation system. Although this document has been carefully reviewed, there might still be some phonetic and typographical errors. Occasional wrong-word or ``sound-alike substitutions may have occurred due to the inherent limitations of voice recognition software. These areas are purely typographical due to imperfections of the software programs and do not reflect any compromise in the patient's medical care. Please read the chart carefully and recognize, using context, where these substitutions have occurred. Plan discussed with: Patient, Other Date of Service: Jun 07, 2025 Billing Provider: NAVARRO LANGSTON Cardiology Common Codes: [id number] HOSP CARE([facility] NAVARRO LANGSTON Jun 07, 2025 14:23
[2025-06-07 16:01] VITALS: BP 136/82; PULSE 61; RESP 18; TEMP 97.9; O2SAT 98
--- NOTE | 2025-06-07 19:27 | DVHSR ---
APPROVED REPORT EXAM: LIMITED Two-dimensional and M-mode echocardiogram with Doppler and color Doppler. Blood Pressure: 125/68 mmHg INDICATION SVT RISK FACTORS Obesity: Height: 5' 4", Weight: 356 DIMENSIONS LVDd3.6 (3.8-5.7cm)LA (2D)3.9 (1.9-4.0cm)Aortic Root3.7 (2.0-3.7cm) LVDs2.3 (2.5-4.0cm)LA (MM) (1.9-4.0cm)Aortic Cusp Exc1.8 (1.5-2.0cm) EF (%) 65.0 (55-70%)Rt. Atrium (1.9-4.0cm)Asc. Aorta cm IVSd1.0 (0.7-1.1cm)RV (D) (1.8-2.4cm) PWd1.0 (0.7-1.1cm) Mitral Valve MitralMitral Stenosis E wave1.30m/sMV Mean GR.mmHg A wave0.70m/sMV Peak GR.mmHg E/A ratio1.92D MVAcm2 Aortic Valve Aortic ValveAortic Stenosis V10.80m/Jhonny Mean GR.5mmHg V21.60m/Jhonny Peak GR.10mmHg LVOT Diameter2.5 (1.8-2.4cm)Doppler AVA2.45cm2 Pulmonic Valve V20.80m/s Other Information Quality : Technically LimitedRhythm : Technically limited study due to body habitus. Conclusion NORMAL LV EF AND IS 65% NORMAL VALVES NORMAL RV FUNCTION NO EFFUSION
--- NOTE | 2025-06-07 22:21 | DVHPN2 ---
Consult Progress Note Date Seen: Jun 07, 2025 Subjective Review of Systems: CVS:Normal, RESPIRATORY:Normal, NEURO:Normal Other Systems: Patient was seen and evaluated in follow-up. No overnight events. Patient is in NSR on the registered nurse cardiac telemetry. TROP 3692. Telemetry reviewed. Objective vital signs Vital Sign Date Time Temp Pulse Resp B/P (MAP) Pulse Ox O2 Delivery O2 Flow Rate FiO2 06/07/25 13:00 97.9 61 18 136/82 (100) 98 97.9 06/07/25 08:00 Room Air* 0 21 21 Total Intake and Output 06/06/25 06/06/25 06/07/25 15:00 23:00 07:00 Intake Total 52 ml 1620 ml 300 ml Balance 52 ml 1620 ml 300 ml medications Current Medications Medications Dose Ordered Sig/Karel Route Start Time Stop Time Status Last Admin Dose Admin Temazepam 15 mg QHSP PRN PO 06/05/25 20:00 Ondansetron HCl 4 mg Q4HP PRN IV 06/05/25 20:00 Acetaminophen 650 mg Q6HP PRN PO 06/05/25 20:00 Nitroglycerin 0.4 mg Q5MINP PRN SL 06/05/25 20:00 Morphine Sulfate 2 mg Q30M PRN IV 06/05/25 20:00 Aspirin 162 mg DAILY PO 06/06/25 10:00 06/07/25 09:31 162 MG Atorvastatin Calcium 10 mg HS PO 06/05/25 22:00 06/06/25 21:24 10 MG Metoprolol Succinate 25 mg DAILY PO 06/06/25 10:00 06/07/25 09:31 25 MG Sodium Chloride 1,000 ml @ 100 mls/hr Q10H IV 06/06/25 10:00 06/07/25 07:52 100 MLS/HR Examination: LUNGS:Normal, CVS:Normal, NEURO:Normal laboratory and microbiology Laboratory Tests 06/07/25 06:14 Test 06/07/25 06:14 Range/Units Serum Glucose 94 74-106 mg/dL Problem List/Assessment/Plan Problem List/Assessment/Plan Problem list Supraventricular tachycardia status post chemical cardioversion, now NSR. NSTEMI, likely type 2 secondary to above. Rule out structural heart disease. Acute kidney injury. Morbid obesity. Plan/Recommendation Continued all current supportive medical care. Patient has been seen by Martha Brown NP on my behalf, her and I discussed the plan with the patient. The patient with supraventricular tachycardia status post chemical cardioversion with adenosine has sustained a normal sinus rhythm. Likely NSTEMI type 2 secondary to tachyarrhythmia. Preliminary transthoracic echocardiogram revealed optimal LV function. Continue beta-kenrick. Replete electrolytes as necessary, K>4 and Mg>2. Strongly counseled on energy drinks cessation. Denies any cardiac symptoms. Additional plan as per the hospital course. Plan discussed with: Patient Date of Service: Jun 07, 2025 Billing Provider: JT KRAMER MD Cardiology Common Codes: [id number] HOSP CARE([facility] JT KRAMER MD Jun 07, 2025 14:57
== END 2025-06-07 16:45 | disposition home or self-care (01) | DRG 201 ==
LOC: ER 15:01 → OVERFLOW 19:50 → TELE-EAST 21:41
PROVIDERS: ADMIT Internal Medicine; ATTEND Internal Medicine
DX: I47.10 Supraventricular tachycardia, unspecified (principal); I21.A1 Myocardial infarction type 2; N17.9 Acute kidney failure, unspecified; Z68.44 Body mass index [BMI] 60.0-69.9, adult; E66.01 Morbid (severe) obesity due to excess calories; Z83.3 Family history of diabetes mellitus
CPT/HCPCS: 36415; 71045; 80048; 80061; 80307; 81001; 83036; 83735; 83880; 84443; 84484; 85025; 85610; 85730; 93005; 93306; 96365; 96375; 99291; G0378; J0153